=== PATIENT | male | born 1975 | race Caucasian/White ===

== ENCOUNTER 2022-11-29 10:45 | Outpatient (RCR) | payer OTHER ==
[~2022-11-29 10:45] MED LIST: ASPI81CH48 PO; ATOR80TA59 PO; CAPT1TAB17 PO; CAPT1TAB18 PO; CEFA10IN IV; CLOP75TA2 PO; GABA-282 PO; HYDR-3363 PO; MILKSUS3 PO; NEUR300C PO; NICO7PA TD; SUCR1TA PO; TRAZ-186 PO; TRAZ-252 PO
== END 2022-12-02 ==
LOC: M PT 10:45
DX: I63.9 Cerebral infarction, unspecified (principal)